=== PATIENT | male | born 1940 | race Caucasian/White ===

== ENCOUNTER 2019-02-11 13:02 | Day surgery (SDC) | payer MEDICARE ==
[2019-02-09 12:57] VITALS: BMI 31.1
[~2019-02-11 13:02] MED LIST: HYDROmorphone 0.5 MG/0.5 ML SYRINGE IVP PRN; LIDOCAINE 1% 20 ML VIAL (10MG/ML) FOR IV START INTRADERMA PRN; ONDANSETRON 4 MG/2 ML VIAL IVP ONE; ceFAZolin IN SWFI 2 GM/20 ML SYRINGE IVP ONE
[2019-02-11] MEDS: LACTATED RINGERS 1,000 ML IV SCH ×2 (13:29→21:51)
[2019-02-11] MEDS ORDERED: MIDAZOLAM (PF) 2 MG/2 ML VIAL IVP ONE (14:50)
[2019-02-11] MEDS ORDERED: fentaNYL (PF) 50 MCG/ML 2 ML AMP IVP ONE (14:50)
--- NOTE | 2019-02-11 15:07 | P.ANPRN ---
Procedure Note - Anesthesia - Nerve Block Performed Right Popliteal Single Time Out Performed: Yes Date of Procedure: 02/11/19 Procedure Start Time: 14:41 Location of Patient Procedure: PreOp Indication: Acute Post-Operative Pain Specifically requested for management of pain by DrToby: Skip Herrera Sedation Type: Sedate with meaningful contact maintained Position: Left Lateral Catheter: None Needle Types: Pajunk Needle Gauge: 18 Technique: Ultrasound Injectate: 0.5% Ropivacaine (see comment for volume) (20cc) Blood Aspirated: No Pain Paresthesia on Injection Noted: No Resistance on Injection: Normal Events: Uneventful and Well Tolerated
[2019-02-11] MEDS ORDERED: LIDOCAINE 1% INJ 10MG/ML (20 ML MDV) ONE (16:48)
[2019-02-11] MEDS ORDERED: fentaNYL (PF) 50 MCG/ML 2 ML AMP ONE (16:48)
[2019-02-11] MEDS ORDERED: MIDAZOLAM 2 MG/2 ML VIAL ONE (16:48)
[2019-02-11] MEDS ORDERED: ROPIVACAINE 5 MG/ML 30 ML VIAL ONE (16:48)
[2019-02-11] MEDS ORDERED: SUCCINYLCHOLINE CHLORIDE 100 MG/5 ML SYR IV ONE (16:48)
[2019-02-11] MEDS ORDERED: PROPOFOL 10 MG/ML 20 ML VIAL IV ONE (16:48)
[2019-02-11] MEDS ORDERED: LACTATED RINGERS 1,000 ML IV ONE (17:05)
--- NOTE | 2019-02-11 18:28 | P.OP ---
Date of Procedure: 02/11/19 Preoperative Diagnosis: 1. Right subtalar joint arthritis 2. Right peroneus longus tendinitis Postoperative Diagnosis: Same Procedure(s) Performed: 1. Right subtalar joint fusion 2. Excision of right os perineum, peroneus longus 3. Application short leg splint by physician, right leg Anesthesia: melody ROSS Surgeon: Skip Herrera Quality Auditor #1: Vilma Berman Estimated Blood Loss (ml): 50 IV fluids (ml): 650 Pathology: none sent Condition: stable Disposition: PACU Indications for Procedure: The patient is a very pleasant previously healthy 78-year-old male who is a long-standing history of problems with his right ankle. Both radiographically and clinically he had evidence of moderate to severe subtalar arthritis. He had an MRI which showed severe arthritis mostly involving the posterior facet of the subtalar joint. He was initially managed nonsurgically with the ankle brace and corticosteroid injections, but had diminishing relief over time. He requested surgery. My recommendation was to perform a subtalar fusion. We discussed potential risks and competitions of surgery including but not limited to risk of anesthesia, some bursal infection, deep infection, delayed wound healing, some partial necrosis, nonunion of the fusion site, malunion of the fusion site, symptomatic hardware, DVT, PE, other medical complications, and inability to regain preinjury level of function, generalized dissatisfaction with surgery, and possibly loss of life or limb. The patient understands these potential complications also acknowledges that other less common complications are possible. He provided his verbal and written consent to go forward with surgery. Description of Procedure: The patient is a friend Holding and the correct right leg was marked my initials. I reviewed the consent form with the patient. All of his questions were answered. A popliteal and saphenous nerve block was given by anesthesia. He was brought back to the operating room and positioned on the OR table where general anesthetic and preoperative and of buttocks were given. The tourniquet was applied the proximal aspect of the right leg. A bump was placed on the right buttock internally rotating the leg to neutral. The left leg was secured with foam and tape. The right leg was then prepped and draped in the standard sterile fashion. Prior to starting surgery timeout was performed identifying the correct patient, operative extremity, and procedure. The patient's leg was then elevated, exsanguinated with an Esmarch tourniquet, and the tourniquet was inflated to 250 mmHg. I began by outlining an incision from the tip of the distal fibula distally over the sinus tarsi in line with the fourth metatarsal. Skin incision with a scalpel. Dissection was carried down carefully to the subcutaneous tissue with tenotomy scissors. The peroneal tendon sheath was sharply incised. The peroneus longus was found to be severely tender not it with a large ossified mass. This was sharply excised. The paraspinous brevis was then retracted plantarly. The capsule of the subtalar joint was opened exposing the posterior and middle facets. On inspection there was almost complete loss of articular cartilage. Using a combination of osteotomes and curettes the remaining articular cartilage was denuded and the subchondral bone was feathered. A 2.5 mm Job was used to perforate the subchondral bone to facilitate fusion. Augment was mixed into the fusion site. The joint was then held in position for fusion and K wires for cannulated 7.0 mm screws were placed through the plantar aspect of the posterior tuberosity up into the talus. The more lateral pin was placed in the talar body and the medial pin was placed toward the neck. The K wires were measured, overdrilled, and partially threaded 7.0 mm annulated screws were placed generating excellent compression across the joint. Final fluoroscopic images were taken verifying position of the hardware and fusion. The wound was carefully irrigated and closed in layers. A sterile dressing was applied. I verified that all instrument, sponge, and sharp counts were correct. The drapes were taken down and a well-padded bulky Javed splint was placed with the ankle in neutral. The patient was then awoken from his anesthetic, transferred to a rwest friendship, and brought to recovery entire procedure well. Plan: The patient is remain strictly nonweightbearing on his right leg. He will be placed in a bulky Javed splint. He was given 2 doses of postoperative antibiotics. He was discharged home with pain medication. We discussed admission overnight as an observation versus going home this evening following surgery. The patient is adamant he would like to go home.
[2019-02-11] MEDS ORDERED: hydrOXYzine PAMOATE 25 MG CAP PO PRN (18:53)
[2019-02-11] MEDS ORDERED: SENNOSIDES-DOCUSATE SODIUM 1 EACH TAB PO PRN (18:53)
[2019-02-11] MEDS ORDERED: ONDANSETRON 4 MG/2 ML VIAL IVP PRN (18:53)
[2019-02-11] MEDS ORDERED: HYDROcodone/APAP 5-325MG 1 EACH TAB PO PRN (18:53)
[2019-02-11] MEDS ORDERED: HYDROmorphone 0.5 MG/0.5 ML SYRINGE IVP PRN ×3 (18:53)
[2019-02-11 21:18] LABS: Basophils # (A) 0.1 k/uL (0-0.2); Basophils % (A) 1 %; Eosinophils # (A) 0.3 k/uL (0-0.7); Eosinophils % (A) 3 %; Lymphocytes # (A) 1.6 k/uL (1.0-4.8); Lymphocytes % (A) 13 %; MCH 26.7 pg (25.0-35.0); MCHC 31.8 g/dL (31.0-37.0); Mean Platelet Volume 7.4; Monocytes # (A) 0.8 k/uL (0-1.0); Monocytes % (A) 7 %; Neutrophils # (A) 9.2 k/uL (1.3-7.7); Neutrophils % (A) 74 %; Platelet Count 194 k/uL (150-450); RBC 4.88 m/uL (4.30-5.90); RDW 14.1 % (11.5-15.5); WBC 12.4 k/uL (3.8-10.6)
[2019-02-11] MEDS: ceFAZolin IN SWFI 2 GM/20 ML SYRINGE IVP SCH (23:24)
[2019-02-11] MEDS: HYDROcodone/APAP 5-325MG 1 EACH TAB PO PRN (23:40)
[2019-02-12] MEDS: LACTATED RINGERS 1,000 ML IV SCH ×2 (04:10→04:11)
--- NOTE | 2019-02-12 07:23 | FL ---
EXAMINATION TYPE: FL guidance operating room, XR ankle limited RT DATE OF EXAM: 02/11/2019 CLINICAL HISTORY: Right ankle surgery TECHNIQUE: Fluoroscopy. COMPARISON: None. FINDINGS: Fluoroscopic guidance was provided during procedure performed by Dr. Herrera. A total of 28 seconds seconds of fluoroscopic time was utilized during the procedure and 4 spot images was acqu ired demonstrating cortical screws in the right ankle. IMPRESSION: As Above.
[2019-02-12 07:51] VITALS: BP 117/68; PULSE 91; RESP 18; TEMP 97.8
[2019-02-12] MEDS ORDERED: ENOXAPARIN 40 MG/0.4 ML SYRINGE SQ SCH (09:00)
[2019-02-12] MEDS: HYDROcodone/APAP 5-325MG 1 EACH TAB PO PRN (11:01)
[2019-02-12] MEDS: ceFAZolin IN SWFI 2 GM/20 ML SYRINGE IVP SCH ×2 (11:03→11:30)
--- NOTE | 2019-02-12 20:13 | P.DS ---
Providers Attending physician: Skip Herrera Consults: 02/11/19 18:53 Consult Physician Routine Consulting Provider: Hugh Dalal Consult Reason/Comments: Medical management Do you want consulting provider notified?: Yes Primary care physician: Hugh Dalal [facility] Course: This is a 78-year-old male that was seen by Dr. Herrera for his right subtalar arthritis. After nonsurgical treatment, the patient requested surgery. Patient underwent a right subtalar fusion and excision of right os peroneum, peroneus longus on 02/11/[address] Herrera. The patient was admitted to [facility] following this procedure. Procedure was performed without complication or sequelae. Patient is doing well postoperatively. Vital signs and postoperative labs are stable. The patient has worked with and is transferring with the assistance of physical therapy and a walker, with no issues. Patient was seen at bedside today and he has no new complaints. He does note a mild headache. He denies chest pain, shortness of breath, fevers, chills, abdominal pain, or dysuria. He is tolerating his diet well. Patient states his pain is currently well-controlled and he would like to return home today. On exam the patient is sitting up in bed in no acute distress. Patient is alert and oriented 3. A Bulky Javed splint is in place to the right lower extremity. The toes are warm and well perfused with brisk capillary refill. Sensation is intact to the toes. There is no pain to passive range of motion of toes. He is able to actively move her toes without difficulty. Left calf if soft and nontender. The patient is discharged home in good condition. Please see discharge orders. Plan - Discharge Summary Discharge Rx Participant: Yes New Discharge Prescriptions: New HYDROcodone/APAP 7.5-325MG [[place] 7.5-325] 1 tab PO Q4H PRN 3 Days #20 tab PRN Reason: Pain Aspirin 325 mg PO BID #28 tab HYDROcodone/APAP 7.5-325MG [[place] 7.5-325] 1 tab PO Q4H PRN #20 tab PRN Reason: Pain No Action Diazepam [Valium] 5 mg PO HS PRN PRN Reason: Insomnia Fluticasone Nasal Merkel [Flonase Nasal Merkel] 2 spr EA NOSTRIL DAILY Montelukast Sodium [Singulair] 10 mg PO QAM Furosemide [Lasix] 40 mg PO DAILY PRN PRN Reason: Edema Ibuprofen [Motrin] 600 mg PO TID PRN PRN Reason: Pain Fluticasone/Salmeterol [Advair Hfa 115-21 Mcg Inhaler] 2 puff INHALATION QAM Potassium Chloride 10 meq PO DAILY PRN PRN Reason: Edema Pantoprazole Sodium [Protonix] 40 mg PO QAM Levothyroxine Sodium [Synthroid] 150 mcg PO HS Levocetirizine Dihydrochloride 5 mg PO QAM Aspirin [Adult Low Dose Aspirin EC] 81 mg PO DAILY Discharge Medication List Aspirin [Adult Low Dose Aspirin EC] 81 mg PO DAILY 02/09/19 [History] Diazepam [Valium] 5 mg PO HS PRN 02/09/19 [History] Fluticasone Nasal Merkel [Flonase Nasal Merkel] 2 spr EA NOSTRIL DAILY 02/09/19 [History] Fluticasone/Salmeterol [Advair Hfa 115-21 Mcg Inhaler] 2 puff INHALATION QAM 02/09/19 [History] Furosemide [Lasix] 40 mg PO DAILY PRN 02/09/19 [History] Ibuprofen [Motrin] 600 mg PO TID PRN 02/09/19 [History] Levocetirizine Dihydrochloride 5 mg PO QAM 02/09/19 [History] Levothyroxine Sodium [Synthroid] 150 mcg PO HS 02/09/19 [History] Montelukast Sodium [Singulair] 10 mg PO QAM 02/09/19 [History] Pantoprazole Sodium [Protonix] 40 mg PO QAM 02/09/19 [History] Potassium Chloride 10 meq PO DAILY PRN 02/09/19 [History] Aspirin 325 mg PO BID #28 tab 02/11/19 [Rx] HYDROcodone/APAP 7.5-325MG [[place] 7.5-325] 1 tab PO Q4H PRN #20 tab 02/11/19 [Rx] HYDROcodone/APAP 7.5-325MG [[place] 7.5-325] 1 tab PO Q4H PRN 3 Days #20 tab 02/11/19 [Rx] Follow up Appointment(s)/Referral(s): Skip Herrera MD [Medical Doctor] - 2 Weeks Activity/Diet/Wound Care/Special Instructions: -Strict non-weight bearing on your operative leg. Do not remove your splint; Keep splint clean, dry, and intact -Use crutches, knee scooter, or a walker to ambulate after surgery. -Elevate and ice operative leg to help reduce swelling and control pain. -Take pain medications as prescribed. Take Colace as a stool softener. Take aspirin as prescribed for blood clot prevention. -Follow-up appointment with Dr. Herrera in the office in 2 weeks. -Call the office with any questions or concerns, Discharge Disposition: HOME SELF-CARE
== END 2019-02-12 11:20 | disposition home or self-care (01) ==
LOC: OR 13:02 → 1SOBS 18:43 → OR 02-12 11:20 → EDSTATUS 02-18 08:30
PROVIDERS: ATTEND Orthopaedic Surgery
DX: M19.071 Primary osteoarthritis, right ankle and foot (principal); M76.71 Peroneal tendinitis, right leg; Q68.8 Other specified congenital musculoskeletal deformities; E03.9 Hypothyroidism, unspecified; K30 Functional dyspepsia; J45.909 Unspecified asthma, uncomplicated; J98.4 Other disorders of lung; I25.10 Atherosclerotic heart disease of native coronary artery without angina pectoris; Z95.1 Presence of aortocoronary bypass graft; Z85.46 Personal history of malignant neoplasm of prostate; Z87.891 Personal history of nicotine dependence; Z97.3 Presence of spectacles and contact lenses; Z79.82 Long term (current) use of aspirin; Z79.899 Other long term (current) drug therapy; Z79.890 Hormone replacement therapy; Z79.1 Long term (current) use of non-steroidal anti-inflammatories (NSAID)
CPT/HCPCS: 28725; 64445; 97163; 85025; 73600; C1713 ×2; J2405; J1650; J3010; J0690 ×2; J2250